=== PATIENT | female | born 1940 | race Hispanic/Latino ===

== ENCOUNTER → 2019-02-05 | Outpatient (CLI) | payer MEDICARE | END | disposition home or self-care (01) | LOC: SHCH 11:09 | PROVIDERS: ATTEND Internal Medicine Cardiovascular Disease | DX: I87.2 Venous insufficiency (chronic) (peripheral) (principal); R06.09 Other forms of dyspnea; I20.9 Angina pectoris, unspecified; E78.5 Hyperlipidemia, unspecified; I10 Essential (primary) hypertension | CPT/HCPCS: 93306; 93970 ==

== ENCOUNTER → 2019-03-11 | Outpatient (CLI) | payer MEDICARE ==
[~2019-03-11] VITALS: Ht 149.9 cm; Wt 56.7 kg
[~2019-03-11] MED LIST: REGADENOSON 0.4 MG/5 ML PF SYG IVP SCH
== END | disposition home or self-care (01) ==
LOC: SHCH 07:57
PROVIDERS: ATTEND Internal Medicine Cardiovascular Disease
DX: I25.110 Atherosclerotic heart disease of native coronary artery with unstable angina pectoris (principal)
CPT/HCPCS: 78452; 93017; 96374; A9500 ×2; J2785

== ENCOUNTER → 2022-10-24 | Outpatient (CLI) | payer MEDICARE | END | disposition home or self-care (01) | LOC: SHCH 10:08 | PROVIDERS: ATTEND Internal Medicine Cardiovascular Disease | DX: I87.2 Venous insufficiency (chronic) (peripheral) (principal); I73.9 Peripheral vascular disease, unspecified; M71.22 Synovial cyst of popliteal space [Baker], left knee | CPT/HCPCS: 93925; 93970 ==

== ENCOUNTER → 2024-12-02 | Outpatient (CLI) | payer MEDICARE ==
--- NOTE | 2024-12-09 08:45 | HMCSR ---
APPROVED REPORT EXAM: Two-dimensional and M-mode echocardiogram with Doppler and color Doppler. INDICATION ICD: Edema, unspecified R60.9 2D Dimensions RVDd3.4 cmLVEF(%)69.1 (>50%)LVED Vol(simp.)73.0 mL IVSd0.8 (0.7-1.1cm)FS(%)38 %LVES Vol(simp.)31.0 mL LVDd3.7 (3.8-5.6cm)Ao Root(2D)2.4 (2.0-3.7cm)LVEF(%, simp.)57 % PWd0.8 (0.7-1.1cm)LVOT diam1.7 (1.8-2.4cm)LA ESV INDEX (BP)28.56 mL/m2 LVDs2.3 (2.5-4.0cm)IVC diam1.4 cm Aortic Valve AoV Vmax1.2 m/Miracle Peak GR6.2 mmHgLVOT Vmax1.1 m/s AoV VTI0.2 mAo Mean GR2.9 mmHgLVOT VTI0.20 m SARA (VMAX)2.0 cm2Al P1/2T536 msAVA (VTI) 2.0 cm2 Mitral Valve MV E Vmax71.8 cm/sDECEL Cqzv743 ms MV A Vmax88.7 cm/sP 1/2 T60 ms E/A ratio0.8MVA (PHT)3.7 cm2 MR Max PG126 mmHg TDI E/E' Kzhifw80.6E/E' Taghuqj35.2 Pulmonary Valve PV Vmax0.8 m/sPV VTI0.18 mPV Mean GR2 mmHg PV Peak GR2.4 mmHgPI End Lilli. Dillon 0.7 cm/s Tricuspid Valve TR Vmax2.7 m/sRAP (EST) 3 iiXvZGUL18.6 mmHg TR Peak GR29.6 mmHg Left Ventricle Left ventricular cavity size is normal. No regional wall motion abnormalities noted in views obtained There is normal left ventricular wall thickness. LVEF is 55-60%. Stage I diastolic dysfunction. Right Ventricle The right ventricle is normal size. The right ventricular systolic function is normal. Atria The left atrium size is normal. The right atrium size is normal. Aortic Valve Aortic valve is trileaflet. Aortic valve leaflets are sclerotic but open well. Trace to mild aortic r egurgitation. There is no aortic valvular stenosis. Mitral Valve Mitral valve leaflets are sclerotic but open well. Mitral regurgitation is noted to be moderate There is no mitral valve stenosis. Tricuspid Valve The tricuspid valve leaflets appear normal. There is moderate tricuspid regurgitation Right ventricul ar systolic pressure is estimated at 30-40 mmHg. Pulmonic Valve The pulmonic valve leaflets appears normal. There is trace pulmonic valvular regurgitation. Great Vessels The aortic root is normal in size. The IVC is normal in size and collapses >50% with inspiration. Pericardium No pericardial effusion. Conclusion LVEF is 55-60%. Stage I diastolic dysfunction. No regional wall motion abnormalities noted in views obtained Trace to mild aortic regurgitation. Mitral regurgitation is noted to be moderate There is moderate tricuspid regurgitation Right ventricular systolic pressure is estimated at 30-40 mmHg. The aortic root is normal in size.
== END | disposition home or self-care (01) ==
LOC: SHCH 08:46
PROVIDERS: ATTEND Internal Medicine Cardiovascular Disease
DX: I08.3 Combined rheumatic disorders of mitral, aortic and tricuspid valves (principal); R60.9 Edema, unspecified
CPT/HCPCS: 93306

== ENCOUNTER → 2025-09-06 | Outpatient (CLI) | payer MEDICARE ==
[~2025-09-06] MED LIST changes: +IOHEXOL-350 75 ML VIAL IV ONE; -REGADENOSON 0.4 MG/5 ML PF SYG IVP SCH
--- NOTE | 2025-09-06 20:18 | HMCIMG ---
EXAM: CT SCAN OF THE ABDOMEN AND PELVIS WITH CONTRAST Clinical statement: Abnormal weight loss and abdominal pain. STUDY PROTOCOL: CT radiation dose protocol was performed in accordance with the principles of ALARA. A multislice CT scan of the abdomen and pelvis was done with intravenous contrast. Sections were obtained from the diaphragms to the inguinal region, including delayed excretory phase images at approximately 7 minutes. Study quality is adequate without significant motion or streak artifact. RADIATION DOSE: CTDIvol 13 mGy; DLP 610.60 mGycm. CONTRAST: Intravenous contrast administered (Omnipaque-based iodinated contrast per protocol). COMPARISON: None provided. FINDINGS: LUNG BASE: Visualized lung bases are clear without focal consolidation or pleural effusion. A few linear fibrotic bands are present in the bilateral lower lobes. LIVER: Liver is normal in size and contour with homogeneous enhancement. There is a tiny calcified granuloma in the right lobe. No suspicious focal hepatic mass or biliary ductal dilatation is identified. GALL BLADDER: Gall bladder is not distended and demonstrates normal wall thickness without pericholecystic fluid. A few tiny dependent gallstones are present. No biliary ductal dilatation is seen. PANCREAS: Pancreas is normal in size, contour, and enhancement without ductal dilatation, peripancreatic fat stranding, or fluid collection. SPLEEN: Spleen is normal in size with homogeneous enhancement and no focal lesion. KIDNEYS: Kidneys enhance symmetrically without focal mass, nephrolithiasis, or hydronephrosis. Visualized ureters are normal in caliber without filling defect on excretory phase images. GIT /T/ PERITONEAL CAVITY: Stomach is decompressed to mildly distended without focal wall thickening. Small bowel loops are normal in caliber without obstruction or mural thickening. Colon is normal in caliber without wall thickening or pericolonic inflammation. The appendix is visualized and normal in caliber without periappendiceal fat stranding. Scattered sigmoid diverticulosis is present without diverticulitis. There is no free intraperitoneal air, free fluid, or mesenteric edema. LYMPHNODES: No pathologically enlarged abdominal or pelvic lymph nodes are identified. RETROPERITONEUM: Adrenal glands are normal in size and morphology without nodule. Abdominal aorta and major branches are normal in course and caliber with [id number] atherosclerotic calcifications. The portal vein, hepatic veins, and inferior vena cava are patent. PELVIS: Urinary bladder is appropriately distended with smooth contour and no discrete intraluminal filling defect; bladder wall thickness measures up to approximately 5 mm without focal mass. Uterus is surgically absent; no adnexal mass is identified. MUSCULOSKELETAL: No acute osseous abnormality or suspicious osseous lesion is seen. There is osteopenia and degenerative change in the spine. OTHER: Visualized abdominal wall and paraspinal soft tissues are unremarkable. IMPRESSION: * No CT evidence of intra-abdominal or pelvic mass, bowel wall thickening, inflammatory process, or other acute pathology to explain abnormal weight loss or abdominal pain on this contrast-enhanced study. * Sigmoid diverticulosis without CT evidence of diverticulitis. Routine age-appropriate colorectal cancer screening and colonoscopic surveillance should be ensured according to clinical guidelines and history. * Cholelithiasis with tiny dependent gallstones, without CT findings of acute cholecystitis. * [id number] abdominal aortic and branch vessel atherosclerotic calcifications, and osteopenia with degenerative spinal changes. * Tiny calcified granuloma in the right hepatic lobe and minimal linear fibrotic bands in the lower lobes, both likely sequelae of remote, clinically insignificant processes. /[place]
== END | disposition home or self-care (01) ==
LOC: RAH 09:23
PROVIDERS: ATTEND Internal Medicine Gastroenterology
DX: K57.30 Diverticulosis of large intestine without perforation or abscess without bleeding (principal); K80.20 Calculus of gallbladder without cholecystitis without obstruction; J98.4 Other disorders of lung; R10.9 Unspecified abdominal pain; I70.0 Atherosclerosis of aorta; M47.817 Spondylosis without myelopathy or radiculopathy, lumbosacral region; M85.88 Other specified disorders of bone density and structure, other site; Z90.710 Acquired absence of both cervix and uterus
CPT/HCPCS: 74177; Q9967